=== PATIENT | male | born 1980 | race Caucasian/White ===

== ENCOUNTER 2023-06-10 20:49 | Emergency (ER) | payer SELFPAY ==
[~2023-06-10] VITALS: Ht 170.2 cm; Wt 81.5 kg
[2023-06-10 21:02] VITALS: O2SAT 98
[2023-06-10] MEDS ORDERED: ONDANSETRON HCL 4MG/2ML INJ IV ONE (21:30)
[2023-06-10] MEDS ORDERED: PANTOPRAZOLE SODIUM 40 MG/VIAL IV ONE (21:30)
[2023-06-10] MEDS ORDERED: SODIUM CHLORIDE 0.9% 1,000 ML IV ONE (21:30)
[2023-06-10 23:03] LABS: BASOPHILS % 0.3 % (0.0-2.0); EOSINOPHILS % 1.3 % (0.0-5.0); HEMATOCRIT. 42.6 % (42.0-52.0); HEMOGLOBIN. 13.9 g/dL (14.0-18.0); LYMPHOCYTES % 14.9 % (20.0-50.0); MEAN CORPUSCULAR HEMOGLOBIN 27.6 pg (28.0-32.0); MEAN CORPUSCULAR HGB CONC 32.7 g/dL (31.0-37.0); MEAN CORPUSCULAR VOLUME 84.5 fL (80.0-94.0); MEAN PLATELET VOLUME 7.9 fl (7.4-10.4); NEUTROPHILS % 77.5 % (40.0-76.0); PLATELET 285 x1000/uL (130-400); RED BLOOD CELL COUNT 5.04 mill/uL (4.7-6.1); RED CELL DISTRIBUTION WIDTH 13.7 % (11.6-14.6); WHITE BLOOD COUNT 9.6 x1000/uL (4.5-11.0)
[2023-06-10 23:05] LABS: INR 0.9
[2023-06-10 23:16] LABS: ALANINE AMINOTRANSFERASE 38 IU/L (10-49); ALBUMIN 4.1 g/dL (3.2-4.8); ASPARTATE AMINOTRANSFERASE 18 IU/L (<34); BILIRUBIN TOTAL 0.3 mg/dL (0.1-1.0); CALCIUM 9.4 mg/dL (8.7-10.4); CARBON DIOXIDE 29 mEq/L (21-32); CHLORIDE 105 mEq/L (98-107); CREATININE 0.8 mg/dL (0.6-1.3); GLUCOSE 118 mg/dL (70-105); POTASSIUM 4.1 mEq/L (3.5-5.1); PROTEIN TOTAL 7.4 g/dL (6.0-8.3); SODIUM 140 mEq/L (136-145); UREA NITROGEN BLOOD 12 mg/dL (9-23)
[2023-06-11 00:03] VITALS: BP 138/82; PULSE 86; RESP 18; TEMP 98.3
[2023-06-11] MEDS ORDERED: PANTOPRAZOLE SODIUM 40 MG/VIAL IV NR (00:45)
[2023-06-11] MEDS ORDERED: ONDANSETRON HCL 4MG/2ML INJ IV NR (00:45)
[2023-06-11] MEDS ORDERED: OMEP20CA14 MT (01:32)
[2023-06-11 02:40] LABS: CLARITY URINE CLEAR (CLEAR); COLOR URINE YELLOW (YELLOW); PROTEIN URINE 1+ (NEGATIVE); SPECIFIC GRAVITY URINE 1.033 (1.005-1.030)
[2023-06-11 02:41] LABS: GLUCOSE URINE NEGATIVE (NEGATIVE); KETONES URINE NEGATIVE (NEGATIVE); LEUKOCYTE ESTERASE URINE NEGATIVE (NEGATIVE); NITRITE URINE NEGATIVE (NEGATIVE); OCCULT BLOOD URINE NEGATIVE (NEGATIVE); UROBILINOGEN URINE 0.2 E.U./dL (0.2-1.0)
[2023-06-11 05:27] LABS: BACTERIA URINE NONE SEEN; RBC URINE NONE SEEN /hpf (0-2); SQUAMOUS EPITHELIAL CELL URINE NONE SEEN /lpf (RARE/1+); WBC URINE 0-2 /hpf (0-2)
== END 2023-06-11 02:56 | disposition home or self-care (01) ==
LOC: ER 20:49
DX: K92.0 Hematemesis (principal); R10.13 Epigastric pain; R07.81 Pleurodynia; F19.90 Other psychoactive substance use, unspecified, uncomplicated; F10.20 Alcohol dependence, uncomplicated; Y90.9 Presence of alcohol in blood, level not specified
CPT/HCPCS: 80053; 83690; 85025; 85610; 86850; 86900; 86901; 36415; 99284; 81003; 96365; 96375; J7030; J2405; C9113; Z7610 ×2